=== PATIENT | male | born 1980 | race Caucasian/White ===

== ENCOUNTER 2023-05-08 19:42 | Inpatient (IN) | payer OTHER ==
[~2023-05-08] VITALS: Ht 165.1 cm; Wt 108.9 kg
[2023-05-08 20:12] VITALS: BP 157/106; PULSE 126; RESP 18; TEMP 98.8; O2SAT 95
[2023-05-08 20:56] LABS: APPEARANCE,URINE CLEAR (CLEAR); BILIRUBIN,URINE NEGATIVE (NEGATIVE); BLOOD, URINE NEGATIVE (NEGATIVE); COLOR,URINE YELLOW (YELLOW); LEUKOCYTE ESTERASE ,URINE NEGATIVE (NEGATIVE); NITRITE, URINE NEGATIVE (NEGATIVE); PH,URINE 7.5 (5.0-9.0); PROTEIN,URINE NEGATIVE (NEGATIVE); UGLUCOSE 1+ (NEGATIVE); UROBILINOGEN,URINE 0.2 EU/dL (0.2 - 1)
[2023-05-08 21:05] LABS: BASOPHILS # (AUTO) 0.1 K/uL (0.00-0.22); BASOPHILS % (AUTO) 0.4 % (0.0-2.0); HEMATOCRIT 48.4 % (36-52); HEMOGLOBIN 16.2 g/dL (12.0-18.0); LYMPHOCYTES # (AUTO) 1.8 K/uL (2.0-11.5); MEAN CORPUSCULAR HEMOGLOBIN 29 pg (27-31); MEAN CORPUSCULAR HGB CONC 33 g/dL (33-37); MEAN CORPUSCULAR VOLUME 86.7 fL (80-94); MONOCYTES # (AUTO) 0.3 K/uL (0.8-1.0); MONOCYTES % (AUTO) 2.5 % (1.7-9.3); NEUTROPHILS # (AUTO) 11.8 K/uL (1.8-7.7); NEUTROPHILS % (AUTO) 84.1 % (42.2-75.2); PLATELET COUNT (AUTO) 351 K/uL (140-450); RED BLOOD CELL COUNT(AUTO) 5.58 MIL/uL (4.20-6.10); RED CELL DISTRIBUTION WIDTH 13.8 % (11.6-13.7)
[2023-05-08] MEDS ORDERED: NACL 0.9% 2,000 ML IV ONE (21:10)
[2023-05-08 21:24] LABS: CARBON DIOXIDE 27.2 mmol/L (21-32); POTASSIUM 4.4 mmol/L (3.5-5.1)
[2023-05-08 21:25] LABS: CALCIUM 9.3 mg/dL (8.5-10.1); TOTAL BILIRUBIN 0.3 mg/dL (0.0-1.0)
[2023-05-08 21:26] LABS: TOTAL PROTEIN, SERUM 10.5 g/dL (6.4-8.2)
[2023-05-08 21:28] LABS: ALBUMIN 3.2 g/dL (3.4-5.0)
[2023-05-08 22:11] LABS: LACTIC ACID 1.9 mmol/L (0.4-2.0)
[2023-05-08] MEDS ORDERED: cefTRIAXone 1,000 MG VIAL ONE (22:16)
[2023-05-08 22:50] LABS: ANION GAP 12.2 (8-16)
[2023-05-08 22:55] VITALS: O2SAT 94
[2023-05-08] MEDS ORDERED: KETOROLAC 30 MG/ML VIAL IVP ONE (23:30)
[2023-05-08] MEDS ORDERED: LIDOCAINE 5% 1 EA PATCH TP ONE (23:30)
[2023-05-09] VITALS (12 sets, daily range): BP systolic 141; BP diastolic 88; PULSE 66–80; RESP 18–20; TEMP 98; O2SAT 94–98
[2023-05-09 00:10] LABS: AMPHETAMINE, URINE NEGATIVE ng/ml (NEG <=1000); BARBITURATE, URINE NEGATIVE ng/ml (NEG <=200); BENZODIAZEPINE, URINE NEGATIVE ng/mL (NEG <=200); CANNABINOID, URINE NEGATIVE ng/mL (NEG <=50); COCAINE, URINE NEGATIVE ng/mL (NEG <=300); OPIATE, URINE NEGATIVE ng/mL (NEG <=2000); PHENCYCLIDINE SCREEN,URINE NEGATIVE ng/mL (NEG <=25)
[2023-05-09] MEDS ORDERED: MORPHINE SULFATE 4 MG/ML SYR IVP ONE (04:25)
[2023-05-09] MEDS ORDERED: AZITHROMYCIN 500 MG in DEXTROSE 5% 250 ML IV ONE (04:40)
[2023-05-09] MEDS ORDERED: AZITHROMYCIN 500 MG INJ VIAL IV ONE (04:55)
[2023-05-09 05:21] LABS: FLU A ANTIGEN negative (NEGATIVE); FLU B ANTIGEN NEGATIVE (NEGATIVE)
[2023-05-09] MEDS ORDERED: KCL 20 MEQ IN 100 mL PREMIX 200 ML IV PRN (05:55)
[2023-05-09] MEDS ORDERED: AZITHROMYCIN 500 MG in DEXTROSE 5% 250 ML IV SCH (05:55)
[2023-05-09] MEDS ORDERED: POTASSIUM CHLORIDE 10 MEQ TABER PO PRN (05:55)
[2023-05-09] MEDS ORDERED: ACETAMINOPHEN 325 MG TAB PO PRN (05:55)
[2023-05-09] MEDS ORDERED: MAGNESIUM OXIDE 400 MG TAB PO PRN (05:55)
[2023-05-09] MEDS ORDERED: ONDANSETRON 4 MG/2 ML VIAL IVP PRN (05:55)
[2023-05-09] MEDS: NACL 0.9% 1,000 ML IV SCH ×2 (06:52→18:38)
[2023-05-09] MEDS: MORPHINE SULFATE 4 MG/ML SYR IVP PRN ×3 (08:19→21:53)
[2023-05-09] MEDS: HYDROcodone/APAP 5/325 MG 1 TAB TAB PO PRN ×3 (08:52→23:13)
[2023-05-09] MEDS: ENOXAPARIN 40 MG/0.4 ML SYR SUBQ SCH (10:14)
[2023-05-10] VITALS (10 sets, daily range): BP systolic 126–144; BP diastolic 61–99; PULSE 57–100; RESP 18–22; TEMP 97–97.9; O2SAT 94–98
[2023-05-10] MEDS: AZITHROMYCIN 500 MG in DEXTROSE 5% 250 ML IV SCH (06:07)
[2023-05-10] MEDS: NACL 0.9% 1,000 ML IV SCH ×2 (06:08→20:32)
[2023-05-10 06:35] LABS: ALBUMIN 2.7 g/dL (3.4-5.0); ANION GAP 12.1 (8-16); CALCIUM 8.8 mg/dL (8.5-10.1); CARBON DIOXIDE 28.1 mmol/L (21-32); CREATININE 0.9 mg/dL (0.6-1.3); POTASSIUM 4.2 mmol/L (3.5-5.1); TOTAL BILIRUBIN 0.7 mg/dL (0.0-1.0); TOTAL PROTEIN, SERUM 8.5 g/dL (6.4-8.2)
[2023-05-10] MEDS: ENOXAPARIN 40 MG/0.4 ML SYR SUBQ SCH (08:30)
[2023-05-10] MEDS: MORPHINE SULFATE 4 MG/ML SYR IVP PRN (08:34)
[2023-05-10] MEDS: HYDROcodone/APAP 5/325 MG 1 TAB TAB PO PRN (20:34)
[2023-05-11] VITALS: BP 120/69; PULSE 68; RESP 18; TEMP 98.7; O2SAT 94
[2023-05-11 01:22] VITALS: PULSE 69
[2023-05-11 04:00] VITALS: BP 114/56; PULSE 75; PULSE 89; RESP 18; TEMP 98.2; O2SAT 94
[2023-05-11] MEDS: HYDROcodone/APAP 5/325 MG 1 TAB TAB PO PRN (05:28)
[2023-05-11] MEDS: AZITHROMYCIN 500 MG in DEXTROSE 5% 250 ML IV SCH (05:30)
[2023-05-11 07:06] LABS: BASOPHILS # (AUTO) 0.1 K/uL (0.00-0.22); BASOPHILS % (AUTO) 0.8 % (0.0-2.0); EOSINOPHILS # (AUTO) 0.1 K/uL (0-0.4); EOSINOPHILS % (AUTO) 1.5 % (0.0-4.0); HEMATOCRIT 42.2 % (36-52); HEMOGLOBIN 14.3 g/dL (12.0-18.0); LYMPHOCYTES # (AUTO) 2.9 K/uL (2.0-11.5); LYMPHOCYTES % (AUTO) 35.9 % (20.5-51.1); MEAN CORPUSCULAR HEMOGLOBIN 29 pg (27-31); MEAN CORPUSCULAR HGB CONC 34 g/dL (33-37); MEAN CORPUSCULAR VOLUME 86.6 fL (80-94); MONOCYTES # (AUTO) 0.7 K/uL (0.8-1.0); MONOCYTES % (AUTO) 8.1 % (1.7-9.3); NEUTROPHILS # (AUTO) 4.3 K/uL (1.8-7.7); NEUTROPHILS % (AUTO) 53.7 % (42.2-75.2); PLATELET COUNT (AUTO) 250 K/uL (140-450); RED BLOOD CELL COUNT(AUTO) 4.88 MIL/uL (4.20-6.10); RED CELL DISTRIBUTION WIDTH 13.4 % (11.6-13.7)
[2023-05-11 07:55] LABS: ALBUMIN 2.6 g/dL (3.4-5.0); ANION GAP 12.6 (8-16); CALCIUM 8.8 mg/dL (8.5-10.1); CARBON DIOXIDE 28.2 mmol/L (21-32); CREATININE 0.6 mg/dL (0.6-1.3); POTASSIUM 3.8 mmol/L (3.5-5.1); TOTAL BILIRUBIN 0.5 mg/dL (0.0-1.0); TOTAL PROTEIN, SERUM 7.5 g/dL (6.4-8.2)
[2023-05-11 08:04] VITALS: PULSE 57
[2023-05-11] MEDS: ENOXAPARIN 40 MG/0.4 ML SYR SUBQ SCH (09:34)
[2023-05-11] MEDS: NACL 0.9% 1,000 ML IV SCH (12:51)
[2023-05-11] MEDS ORDERED: AZIT250T3 PO (16:38)
[2023-05-11] MEDS ORDERED: CEPH-588 PO (16:38)
[2023-05-11 16:41] VITALS: BP 122/81; RESP 18; TEMP 98
[2023-05-11 16:44] VITALS: BP 122/81; PULSE 82; RESP 20; TEMP 98
== END 2023-05-11 17:52 | disposition home or self-care (01) | DRG 137 ==
LOC: MED 19:42 → MTU 05-09 05:57 → OBSVTOIN 05-09 05:58 → MTU 05-09 16:55
PROVIDERS: ADMIT Hospitalist; ATTEND Hospitalist
DX: J69.0 Pneumonitis due to inhalation of food and vomit (principal); J96.01 Acute respiratory failure with hypoxia; E44.0 Moderate protein-calorie malnutrition; R65.10 Systemic inflammatory response syndrome (SIRS) of non-infectious origin without acute organ dysfunction; Z20.822 Contact with and (suspected) exposure to COVID-19; R73.9 Hyperglycemia, unspecified; E66.01 Morbid (severe) obesity due to excess calories; Z68.39 Body mass index [BMI] 39.0-39.9, adult
CPT/HCPCS: 36415; 71045; 71275; 80053; 80305; 81003; 83605; 83690; 85025; 85379; 87040; 87081; 87086; 93005; 96361; 96365; 96367; 96375; 99291; J0456; J0696; J1650; J1885; J2270; J2405; J7060; Q0092; Q9967